=== PATIENT | female | born 1985 | race Caucasian/White ===

== ENCOUNTER 2016-12-19 11:07 | Inpatient (IN) | payer BC ==
[2016-12-19] MEDS ORDERED: LR 1000 ML IV 1,000 ML IV ONE ×3 (11:22→12:17)
[2016-12-19] MEDS ORDERED: NS 50 ML IV + SPIKE MINIBAG* 50 ML IV ONE (11:22)
[2016-12-19] MEDS ORDERED: ANCEF VIAL 1 GM ONE (11:23)
[2016-12-19] MEDS ORDERED: DURAMORPH ONE (11:36)
[2016-12-19] MEDS ORDERED: NS IRRIGATION 1000 ML 1,000 ML IR ONE (12:01)
[2016-12-19 12:02] LABS: BASOPHILS # (AUTO) 0.1 X10^3/uL (0.0-0.1); BASOPHILS % (AUTO) 0.5 % (0.2-1.0); EOSINOPHILS # (AUTO) 0.2 x10^3/uL (0.0-0.2); EOSINOPHILS % (AUTO) 1.1 % (0.9-2.9); HEMATOCRIT 40.2 % (36.0-47.0); HEMOGLOBIN 13.5 g/dL (12.0-16.0); LYMPHOCYTES % (AUTO) 16.9 % (21.0-51.0); MEAN CORPUSCULAR HEMOGLOBIN 28.6 pg (27.0-34.0); MEAN CORPUSCULAR HGB CONC 33.5 g/dL (33.0-35.0); MEAN CORPUSCULAR VOLUME 85.6 fL (80.0-100.0); MEAN PLATELET VOLUME 10.4 fL (7.4-11.0); MONOCYTES # (AUTO) 0.7 x10^3/uL (0.3-0.8); MONOCYTES % (AUTO) 4.2 % (0.0-13.0); NEUTROPHILS # (AUTO) 13.5 x10^3/uL (2.2-4.8); NEUTROPHILS % (AUTO) 77.3 % (42.0-75.0); PLATELET COUNT 199 X10^3/uL (150.0-450.0); RED CELL DISTRIBUTION WIDTH 14.1 % (11.6-16.5); WHITE BLOOD COUNT 17.5 X10^3/uL (3.6-10.0)
[2016-12-19 12:04] LABS: BLOOD UREA NITROGEN 11 mg/dL (7-18); CALCIUM 8.9 mg/dL (8.5-10.1); CARBON DIOXIDE 19.6 mmol/L (21-32); CHLORIDE 106 mmol/L (98-107); CREATININE 0.68 mg/dL (0.55-1.02); GLUCOSE 86 mg/dL (65-99); SODIUM 138 mmol/L (136-145); eGFR BLACK RACES > 60 (>60); eGFR NON BLACK RACES > 60 (>60)
[2016-12-19] MEDS ORDERED: D5 1/2 NS 1000ML W PITOCIN 20 U/L 1,000 ML IV ONE (12:17)
[2016-12-19 12:59] LABS: BILIRUBIN,URINE NEGATIVE (NEGATIVE); BLOOD/HEMOGLOBIN,URINE 2+ (NEGATIVE); GLUCOSE, URINE NEGATIVE (NEGATIVE); KETONES,URINE 1+ (NEGATIVE); LEUKOCYTE ESTERASE ,URINE 2+ (NEGATIVE); NITRITES,URINE NEGATIVE (NEGATIVE); PROTEIN,URINE 2+ (NEGATIVE); UROBILINOGEN,URINE NORMAL (NORMAL)
[2016-12-19 13:06] LABS: APPEARANCE,URINE CLOUDY (CLEAR); COLOR,URINE YELLOW (YELLOW)
[2016-12-19 13:07] LABS: BACTERIA,URINE 1+ /HPF (NEGATIVE); RBC,URINE 0-2 /HPF (NEGATIVE); SQUAMOUS EPITHELIAL CELL,UR NUMEROUS /HPF (NEGATIVE)
[2016-12-19] MEDS ORDERED: BENADRYL INJ 50 MG VIAL IVP PRN ×2 (13:22→13:53)
[2016-12-19] MEDS ORDERED: REGLAN INJ 10 MG VIAL IVP PRN ×2 (13:22→13:53)
[2016-12-19] MEDS ORDERED: ZOFRAN INJ 4 MG VIAL IVP PRN ×2 (13:22→13:53)
[2016-12-19] MEDS ORDERED: PHENERGAN INJ 25 MG IVP PRN (13:22)
[2016-12-19] MEDS ORDERED: TORADOL 30 MG VIAL ONE (13:25)
[2016-12-19] MEDS ORDERED: PERCOCET TAB 5/325 MG PO PRN (13:53)
[2016-12-19] MEDS ORDERED: ADACEL TDaP IM ONE (13:53)
[2016-12-19] MEDS ORDERED: NARCAN INJ IVP PRN (13:53)
[2016-12-19] MEDS ORDERED: MYLICON TAB 80 MG CHEW PO PRN (13:53)
[2016-12-19] MEDS ORDERED: TORADOL 30 MG VIAL IVP PRN (13:53)
[2016-12-19] MEDS ORDERED: HYPERRHO S/D (or RHOGAM) IM PRN (13:53)
[2016-12-19] MEDS ORDERED: D5 1/2 NS 1000 ML 1,000 ML with PITOCIN 20 UNITS IV SCH ×2 (14:00)
[2016-12-19] MEDS ORDERED: PITOCIN ONE (15:27)
[2016-12-19] MEDS ORDERED: ZOFRAN INJ 4 MG VIAL ONE (15:27)
[2016-12-19] MEDS ORDERED: EPHEDRINE SULFATE INJ ONE (15:27)
[2016-12-19] MEDS ORDERED: XYLOCAINE 1 % (PLAIN) ONE (15:27)
[2016-12-19] MEDS ORDERED: DIPRIVAN VIAL ONE (15:27)
[2016-12-20 05:59] LABS: HEMATOCRIT 37.3 % (36.0-47.0); HEMOGLOBIN 12.4 g/dL (12.0-16.0)
[2016-12-20] MEDS ORDERED: PERCOCET TAB 5/325 MG PO PRN (08:10)
[2016-12-20] MEDS ORDERED: PREVACID PO SCH (09:00)
[2016-12-20] MEDS: PRENATAL PLUS PO SCH (09:55)
[2016-12-20] MEDS: COLACE CAP 100 MG PO SCH ×2 (09:55→21:16)
[2016-12-20] MEDS: PREVACID PO SCH (09:55)
[2016-12-20] MEDS: BACTROBAN OINT TOP SCH ×2 (19:03→22:11)
[2016-12-20] MEDS: MOTRIN TAB 800 MG PO PRN (21:16)
[2016-12-21] MEDS: BACTROBAN OINT TOP SCH (06:18)
[2016-12-21] MEDS: PREVACID PO SCH (09:01)
[2016-12-21] MEDS: PRENATAL PLUS PO SCH (09:01)
[2016-12-21] MEDS: COLACE CAP 100 MG PO SCH (09:01)
[2016-12-21 09:39] VITALS: BP 135/60
[2016-12-21] MEDS: MOTRIN TAB 800 MG PO PRN (09:42)
== END 2016-12-21 11:45 | disposition home or self-care (01) | DRG 766 ==
LOC: LD 11:07 → MED/SURG 13:26
PROVIDERS: ADMIT Specialist; ATTEND Specialist
PROC: 0UB70ZZ Excision of Bilateral Fallopian Tubes, Open Approach (ICD-10-PCS; 2016-12-19)
PROC: 30233S1 Transfusion of Nonautologous Globulin into Peripheral Vein, Percutaneous Approach (ICD-10-PCS; 2016-12-19)
PROC: 3E0234Z Introduction of Serum, Toxoid and Vaccine into Muscle, Percutaneous Approach (ICD-10-PCS; 2016-12-19)
PROC: 10D00Z1 Extraction of Products of Conception, Low, Open Approach (ICD-10-PCS; principal; 2016-12-19 11:45)
DX: O98.82 Other maternal infectious and parasitic diseases complicating childbirth (principal); Z37.0 Single live birth; O36.0930 Maternal care for other rhesus isoimmunization, third trimester, not applicable or unspecified; B95.1 Streptococcus, group B, as the cause of diseases classified elsewhere; O26.893 Other specified pregnancy related conditions, third trimester; Z30.2 Encounter for sterilization; O34.211 Maternal care for low transverse scar from previous cesarean delivery; N85.8 Other specified noninflammatory disorders of uterus; Z3A.38 38 weeks gestation of pregnancy
CPT/HCPCS: 36415; 80048; 81001; 85014; 85018; 85025; 85461; 85610; 85730; 86592; 86850; 86900; 86901; 87086; A4216; A4222; S0197; J0690; J1200; J1885; J2001; J2405; J2590; J2790; J3490; J7120